=== PATIENT | female | born 1975 | race Caucasian/White ===

== ENCOUNTER 2022-05-06 14:22 | Outpatient (CLI) | payer OTHER, SELFPAY ==
[~2022-05-06 14:22] MED LIST: Magnevist 469MG/ML 20 ML VIAL ONE
== END 2022-05-06 14:23 | disposition home or self-care (01) ==
LOC: CSHMRI 14:22
PROVIDERS: ATTEND Nurse Practitioner Family
DX: H53.452 Other localized visual field defect, left eye (principal); I63.531 Cerebral infarction due to unspecified occlusion or stenosis of right posterior cerebral artery; G93.89 Other specified disorders of brain
CPT/HCPCS: 70553; A9579